=== PATIENT | female | born 1980 | race Caucasian/White ===

== ENCOUNTER → 2024-02-25 11:24 | Outpatient (REF) | payer OTHER, SELFPAY | LOC: HWWDC 11:24 | PROVIDERS: ATTENDING PHYSICIAN Nurse Practitioner Adult Health | DX: Z12.31 Encounter for screening mammogram for malignant neoplasm of breast (principal) | CPT/HCPCS: 77063; 77067 ==

== ENCOUNTER → 2024-03-13 12:52 | Outpatient (REF) | payer OTHER, SELFPAY | LOC: HWRCS 12:52 | PROVIDERS: ATTENDING PHYSICIAN Nurse Practitioner Adult Health | DX: I10 Essential (primary) hypertension (principal); R00.2 Palpitations | CPT/HCPCS: 93306 ==

== ENCOUNTER → 2025-05-04 09:23 | Outpatient (REF) | payer OTHER, SELFPAY | LOC: HWWDC 09:23 | PROVIDERS: ATTENDING PHYSICIAN Nurse Practitioner Adult Health | DX: Z13.820 Encounter for screening for osteoporosis (principal); Z12.31 Encounter for screening mammogram for malignant neoplasm of breast | CPT/HCPCS: 77063; 77067; 77080 ==

== ENCOUNTER → 2025-05-16 08:34 | Outpatient (REF) | payer OTHER, SELFPAY | LOC: WDC 08:34 | PROVIDERS: ATTENDING PHYSICIAN Nurse Practitioner Adult Health | DX: R92.8 Other abnormal and inconclusive findings on diagnostic imaging of breast (principal) | CPT/HCPCS: 76642 ==

== ENCOUNTER 2025-07-30 06:15 | Day surgery (SDC) | payer OTHER, SELFPAY | END 2025-07-30 08:56 | disposition home or self-care (01) | LOC: GI 06:15 | PROVIDERS: ATTENDING PHYSICIAN Internal Medicine Gastroenterology | DX: Z12.11 Encounter for screening for malignant neoplasm of colon (principal); K64.8 Other hemorrhoids | CPT/HCPCS: G0121 ==

== ENCOUNTER 2025-09-04 12:14 | Emergency (ER) | payer OTHER, SELFPAY ==
[2025-09-04 12:16] VITALS: BP 166/109
[2025-09-04 12:40] LABS: Hematocrit 35.7 % (37.0-47.0); Hemoglobin 12.6 g/dL (12.0-16.0); Mean Corp Hgb Conc. 35.3 g/dL (33.0-37.0); Mean Corpuscular Volume 98.3 fL (81.0-99.0); Nucleated Red Blood Cells % 0 %; Platelet Count 274 10^3/uL (130-400); Red Cell Dist. Width 13.2 % (11.5-14.5)
[2025-09-04 13:01] LABS: HCG, Serum Qualitative Screen Negative
[2025-09-04 13:13] LABS: ALT (SGPT) 30 U/L (0-35); AST (SGOT) 26 U/L (14-36); Albumin 5.0 g/dl (3.5-5.0); Alkaline Phosphatase 91 U/L (38-126); Blood Urea Nitrogen 17 mg/dl (7-17); Calcium 10.2 mg/dl (8.4-10.2); Carbon Dioxide 24 mmol/L (22-30); Chloride 102 mmol/L (98-107); Glucose 98 mg/dl (70-99); Potassium 4.5 mmol/L (3.5-5.1); Sodium 133 mmol/L (135-145); Total Protein 7.8 g/dl (6.3-8.2); eGFR > 60.00
--- NOTE | 2025-09-04 15:13 | ED.GENMED ---
History of Present Illness
General
Chief Complaint: Vaginal Bleeding
Time Seen by Provider: 09/04/25 15:13
History of Present Illness
History of Present Illness:
FOCUSED PAST MEDICAL HISTORY
- IBS, high blood pressure, dermatomyositis
REVIEW OF OLD RECORDS
- Hemoglobin on 04/28/2022 was 13.3 and she has been as low as 10.5 in 2010
Note:
CHIEF COMPLAINT(S)
Abnormal vaginal bleeding.
HISTORY OF PRESENT ILLNESS
The patient is a 45-year-old female who presents to the emergency department with concerns of abnormal vaginal bleeding. She reports missing her last two menstrual cycles, which have now been followed by the onset of significant bleeding. The
patient specifies that the bleeding is more than her normal menstrual flow, with episodes of heavy clotting. Today she experienced passing a 'huge clot,' and notes that although it may appear alarming, she was informed it does not necessarily
indicate a worsening condition.
The patient has tested negative on a test, and previous hemoglobin levels, compared to years ago, remain stable and within normal range. She has no history of significant menstrual irregularities. Her sister, a factory representative, suggested she
might need an iron supplement, but the attending physician noted that hemoglobin levels did not warrant immediate iron testing unless the patient requested.
An internal exam is planned with a female survey workers supervisor present to assess the extent of the bleeding. An ultrasound has been ordered to further investigate the bleeding, with initial examination to be conducted transabdominally. The patient indicated
willingness to drink more water to fill her bladder in preparation for the procedure.
PAST MEDICAL AND SURIGICAL HISTORY
The patient recalls previous lower hemoglobin levels about a decade ago but notes no historical issues with menstrual cycles prior to the current condition.
PHYSICAL EXAM
General: Alert, no acute distress.
Skin: Warm, dry.
Head: Normocephalic, atraumatic.
Neck: Supple, trachea midline.
Eye Ears, nose, mouth and throat: Oral mucosa moist.
Cardiovascular: Normal peripheral perfusion, No edema.
Respiratory: Respirations are non-labored.
Gastrointestinal: Abdomen nondistended.
: With nurse present in the room, only small amount of blood was noted on bimanual examination, no cervical motion tenderness
Back: Normal range of motion, Normal alignment.
Musculoskeletal: Normal ROM, normal strength.
Neurological: Alert and oriented to person, place, time, and situation, No focal neurological deficit observed.
Psychiatric: Cooperative, appropriate mood & affect.
PLAN
1. Perform an internal exam with a female nurse present to assess the magnitude of bleeding.
2. Conduct a pelvic ultrasound starting with a transabdominal approach, ensuring that the patients bladder is adequately filled prior to the procedure for optimal imaging.
3. Discuss potential management options for abnormal uterine bleeding with the patient, including the potential use of hormone therapy or iron supplementation based on additional findings and patient preference.
DIFFERENTIAL DIAGNOSIS
The Differential Diagnosis includes, in no particular order and is not limited to:
1. Dysfunctional uterine bleeding
2. Perimenopausal bleeding
3. Benign uterine tumors such as fibroids
4. Endometrial hyperplasia
5. Coagulopathy or bleeding disorder
6. Chronic anovulation
7. Hormonal imbalance
8. Endometrial or cervical carcinoma
9. Endometrial polyp
10. Uterine atrophy
Disposition:
SUMMARY OF ENCOUNTER
The patient, a 45-year-old female, was evaluated in the emergency department for abnormal vaginal bleeding. Despite missing the past two menstrual cycles and experiencing significant bleeding with clotting, her hemoglobin levels remain within normal
limits, indicating no anemia or iron deficiency. An ultrasound showed an endometrial lining that was not significantly thickened and no uterine fibroids, but noted a cyst on the left side, which is not believed to be related to the bleeding. After
discussion with Dr. Balderrama, it was decided to prescribe norethindrone for bleeding control and tranexamic acid (TXA) to manage bleeding, as recommended by the gynecology department. The examination showed only a small amount of blood, and it was
deemed appropriate for the patient to be discharged with a prescription.
DISPOSITION
Discharge.
PLAN
1. Prescribe norethindrone for five days to help control the bleeding.
2. Prescribe tranexamic acid (TXA) for five days based on gynecologys recommendation.
3. Advise the patient on the expected resumption of menstrual cycles after treatment.
INDEPENDENT REVIEW OF LABS AND INTERPRETATION OF TESTS
- My independent review of hemoglobin levels indicates they are within normal limits, showing no anemia or iron deficiency.
- My independent ultrasound interpretation indicates no significant thickening of the endometrium and no uterine fibroids, but a cyst was noted on the left side.
PATIENT EDUCATION AND COUNSELING
The patient was informed about the prescribed treatments, including the use of norethindrone and TXA, and how these medications will help manage and reset menstrual bleeding. The expected resumption of a typical menstrual cycle post-treatment was
discussed.
MEDICATION RECONCILIATION
1. Norethindrone for five days to control bleeding.
2. Tranexamic acid (TXA) prescribed for five days to manage bleeding.
MEDICAL DECISION MAKING
- Complexity of Data Reviewed: Chronic conditions affecting care include historical low hemoglobin levels. Differential diagnosis includes dysfunctional uterine bleeding, perimenopausal bleeding, benign uterine tumors (fibroids), endometrial
hyperplasia, coagulopathy or bleeding disorder, chronic anovulation, hormonal imbalance, endometrial or cervical carcinoma, endometrial polyp, and uterine atrophy.
- Data:
Category 1
- My independent review of ultrasound findings: no significant endometrial thickening and no uterine fibroids; a cyst on the left side was noted.
Category 2
- Clinical information obtained from an independent historian: The patients history of previous normal hemoglobin levels provided context for her current stable condition.
Category 3
- Discussion of management with Dr. Balderrama (gynecology).
DIAGNOSIS
1. Abnormal uterine bleeding (N92.6)
2. Ovarian cyst, left side (N83.202)
RADIOLOGY
- Ultrasound imaging shows left-sided ovarian cyst
LABS
- White count 9.6, hemoglobin 12.6, hCG negative
Past History
Past History
ED Past Medical History: Other (lups/dermatomyositis); Negative Asthma, HTN, Hypercholesterolemia or NIDDM
ED Past Surgical History: Cholecystectomy
Social History
Tobacco: Former smoker
Alcohol: Daily (Beer 2)
Drug: None
Personal:
Living: with family
Phy Exam
Physical Exam
Physical Exam:
See HPI
Course
Orders/Labs/Results
Orders:
Orders
09/04/25 12:19
Test Result ONCE
09/04/25 12:24
Complete Blood Count/With Diff Urgent
Comprehensive Metabolic Panel Urgent
Ferritin Urgent
Comment: ADD ON
HCG, Serum Qualitative Screen Urgent
Iron Urgent
Comment: ADD ON
Total Iron Binding Urgent
Comment: ADD ON
09/04/25 15:21
US Pelvis W Transvag Combined Urgent
Reason For Exam: heavy new VB
09/04/25 16:27
Add On- LAB Urgent
Tests Added?: iron, TIBC, ferritin
Abnormal Lab Results
09/04/25
12:24
RBC 3.63 L 10^6/uL
(4.20-5.40)
Hct 35.7 L %
(37.0-47.0)
MCH 34.7 H pg
(27.0-31.0)
MPV 10.8 H fL
(7.4-10.4)
Abs Immat Gran (auto) 0.1 H 10^3/uL
(0-0.05)
Absolute Neuts (auto) 6.7 H 10^3/uL
(1.4-6.5)
Absolute Monos (auto) 0.7 H 10^3/uL
(0.1-0.6)
Immature Gran % 0.7 H %
(0-0.5)
Sodium 133 L mmol/L
(135-145)
09/04/25 12:24
09/04/25 12:24
Vital Signs
Initial and Last Documented VS:
Initial Vital Signs
Temp Pulse Resp BP Pulse Ox
37.1 C 91 18 166/109 97
09/04/25 12:16 09/04/25 12:16 09/04/25 12:16 09/04/25 12:16 09/04/25 12:16
Last Documented Vital Signs
Temp Pulse Resp BP Pulse Ox
37.1 C 81 17 132/86 99
09/04/25 12:16 09/04/25 18:08 09/04/25 18:08 09/04/25 18:08 09/04/25 18:08
*Pulse Oximetry
SaO2: 97
Oxygen Mode of Delivery: Room air
Patient hypoxic: no
*Critical Care Note
Total Time (30-74mins, 75-104mins- exclusive of procedures): Not Applicable
ED Attending Note
-
Portions of this chart may have been created with voice recognition software.� Occasional wrong word or��sound alike� substitutions may have occurred due to the inherent limitations of voice recognition software.
Discharge Plan
Departure
Patient Disposition: Home (Routine Discharge)
Date of Disposition: 09/04/25
Time of Disposition: 17:54
Patient with high blood pressure during this ER visit?: Yes
Discharge Problem:
Abnormal vaginal bleeding
Instructions: Heavy Periods (DC), BLOOD PRESSURE
Prescriptions:
New
norethindrone acetate 5 mg tablet
10 mg PO DAILY Qty: 10 0RF
tranexamic acid 650 mg tablet
1,300 mg PO TID 5 Days Qty: 30 0RF
No Action
acetaminophen [acetaminophen] 325 mg tablet
650 mg PO Q6HPRN PRN (Reason: mild pain) Qty: 14 0RF
ibuprofen 600 mg tablet
600 mg PO Q6H PRN (Reason: pain) Qty: 14 0RF
Referrals:
Ki Solo MD [Family Provider, Gynecology]
Activity Restrictions/Additional Instructions:
Hemoglobin is normal at 12.6, we added on an iron level which was normal. The ultrasound shows normal endometrium and no sign of fibroids however does show a 5.3 cm mildly complex cyst in the left ovary. I recommend that you follow-up with
[facility]. I spoke to Dr. Balderrama, Dr. Solo partner who recommends starting the norethindrone and TXA for 5 days.
Interventions
Interventions:
*Risk Screen - Suicide Last Done: 09/04/25 12:16
*General Assessment Last Done: 09/04/25 12:16
*ED COVID-19 Vaccine History Last Done: 09/04/25 15:22
*ED Influenza Vaccine History Last Done: 09/04/25 15:22
*Nursing Disposition Last Done: 09/04/25 18:25
ED-Female Genitourinary Assessment Last Done: 09/04/25 15:22
Discharge Date and Time
Discharge Date/Time: 09/04/25 18:25
Print Language: LAO
[2025-09-04 15:22] VITALS: BP 147/86
[2025-09-04 17:33] LABS: Iron 118 ug/dl (37-170)
[2025-09-04 17:42] LABS: Total Iron Binding Capacity 429 ug/dl (265-497)
[2025-09-04 18:08] VITALS: BP 132/86
[2025-09-04 18:09] LABS: Ferritin 119.0 ng/ml (6.24-137)
== END 2025-09-04 18:25 | disposition home or self-care (01) ==
LOC: EMR 12:14
PROVIDERS: Student in an Organized Health Care Education/Training Program; EMERGENCY PHYSICIAN Emergency Medicine; FAMILY PHYSICIAN Obstetrics & Gynecology
DX: N93.9 Abnormal uterine and vaginal bleeding, unspecified (principal); N83.292 Other ovarian cyst, left side; I10 Essential (primary) hypertension; K58.9 Irritable bowel syndrome, unspecified; Z87.891 Personal history of nicotine dependence
CPT/HCPCS: 99284; 76830; 76856; 80053; 82728; 83540; 83550; 84703; 85025